=== PATIENT | male | born 1955 | race Caucasian/White ===

== ENCOUNTER 2024-10-15 11:27 | Inpatient (IN) | payer MEDICAID, MEDICARE ==
[~2024-10-15] VITALS: Ht 182.9 cm; Wt 104.4 kg
[2024-10-15 12:34] LABS: HEMATOCRIT. 50.1 % (42.0-52.0); HEMOGLOBIN. 16.3 g/dL (14.0-18.0); MEAN CORPUSCULAR HEMOGLOBIN 28.8 pg (28.0-32.0); MEAN CORPUSCULAR HGB CONC 32.6 g/dL (31.0-37.0); MEAN CORPUSCULAR VOLUME 88.2 fL (80.0-94.0); PLATELET 163 x1000/uL (130-400); RED BLOOD CELL COUNT 5.68 mill/uL (4.7-6.1); RED CELL DISTRIBUTION WIDTH 17.8 % (11.6-14.6); WHITE BLOOD COUNT 20.6 x1000/uL (4.5-11.0)
[2024-10-15 12:38] LABS: DIFFERENTIAL COMMENT 1
[2024-10-15 12:42] LABS: INR 1.1; PROTHROMBIN TIME 11.4 sec (9.6-11.0)
[2024-10-15 12:48] LABS: POTASSIUM 4.1 mEq/L (3.5-5.1)
[2024-10-15 12:49] LABS: CALCIUM 9.5 mg/dL (8.7-10.4)
[2024-10-15 12:54] LABS: CREATININE 1.5 mg/dL (0.6-1.3)
[2024-10-15 13:24] LABS: ANISOCYTOSIS 1+; PLATELET ESTIMATE NORMAL
[2024-10-15] MEDS: SODIUM CHLORIDE 0.9% 1,000 ML IV ONE (13:42)
[2024-10-15] MEDS: CEFTRIAXONE 1GM/50ML 50 ML IV ONE (13:42)
[2024-10-15 13:58] LABS: ALANINE AMINOTRANSFERASE 42 IU/L (10-49); ALBUMIN 4.5 g/dL (3.2-4.8); ASPARTATE AMINOTRANSFERASE 21 IU/L (<34); BILIRUBIN DIRECT 0.4 mg/dL (<=3.0); BILIRUBIN TOTAL 1.1 mg/dL (0.1-1.0); PROTEIN TOTAL 6.7 g/dL (6.0-8.3)
[2024-10-15 14:09] LABS: TROPONIN I HIGH SENSITIVITY 77 ng/L (3.0-53)
[2024-10-15 16:01] LABS: INFLUENZA TYPE A Presumptive Negative (Pres. Neg.)
[2024-10-15 16:02] LABS: INFLUENZA TYPE B Presumptive Negative (Pres. Neg.); RESPIRATORY SYNCYTIAL VIRUS Not Detected (Not Detectd)
[2024-10-15] MEDS: AZITHROMYCIN 500MG/250ML 250 ML IV SCH (16:03)
[2024-10-15] MEDS ORDERED: CLONIDINE 0.1MG TABLET PO PRN (17:30)
[2024-10-15] MEDS ORDERED: ACETAMINOPHEN 325MG TABLET PO PRN (17:30)
[2024-10-15] MEDS ORDERED: DEXTROSE 50% WATER 50ML SYRINGE IV PRN (17:30)
[2024-10-15] MEDS ORDERED: MAGNESIUM/ALUMINUM HYDROXIDE/SIMETHICONE 30ML UDC PO PRN (17:30)
[2024-10-15] MEDS ORDERED: IPRATROPIUM/ALBUTEROL 0.5-3(2.5)MG/3ML NEB HHN PRN (17:30)
[2024-10-15] MEDS ORDERED: SODIUM CHLORIDE 0.9% 1,000 ML IV ONE (18:30)
[2024-10-15 19:34] LABS: TROPONIN I HIGH SENSITIVITY 63 ng/L (3.0-53)
[2024-10-15 20:00] VITALS: BP 139/31; PULSE 79; RESP 18; RESP 19; TEMP 36.9; TEMP 37; O2SAT 92
[2024-10-15] MEDS: INSULIN LISPRO 100 UNITS/ML SUBCUT SCH (21:00)
[2024-10-15] MEDS: BLOOD SUGAR DIAGNOSTIC STRIP TEST SCH (21:03)
[2024-10-15] MEDS: ATORVASTATIN CALCIUM 40MG TABLET PO SCH (21:56)
[2024-10-15] MEDS: SODIUM CHLORIDE 0.9% 500 ML IV ONE (21:56)
[2024-10-15] MEDS: FAMOTIDINE 20MG TABLET PO SCH (21:57)
[2024-10-15] MEDS: VANCOMYCIN 1.25GM/250ML IV SCH (21:58)
[2024-10-16] VITALS: BP 120/59; PULSE 74; RESP 19; TEMP 36.9; O2SAT 91
[2024-10-16] MEDS ORDERED: TAMS-54 (01:31)
[2024-10-16] MEDS ORDERED: ESCI5TAB16 PO (01:31)
[2024-10-16] MEDS ORDERED: FURO20TA4 PO (01:31)
[2024-10-16] MEDS ORDERED: LISI-186 PO (01:31)
[2024-10-16] MEDS ORDERED: EMPA25TA PO (01:31)
[2024-10-16] MEDS ORDERED: CLOP75TA33 PO (01:31)
[2024-10-16 02:21] LABS: TROPONIN I HIGH SENSITIVITY 52 ng/L (3.0-53)
[2024-10-16 04:00] VITALS: BP 124/63; PULSE 60; RESP 20; TEMP 36.3; O2SAT 91
[2024-10-16] MEDS: SODIUM CHLORIDE 0.9% 1,000 ML IV ONE (05:07)
[2024-10-16] MEDS: PIPERACILLIN/TAZO 3.375G/50ML 100 ML IV SCH (05:07)
[2024-10-16 06:31] LABS: CLARITY URINE CLEAR (CLEAR); COLOR URINE YELLOW (YELLOW); GLUCOSE URINE 3+ (NEGATIVE); KETONES URINE TRACE (NEGATIVE); LEUKOCYTE ESTERASE URINE 1+ (NEGATIVE); NITRITE URINE NEGATIVE (NEGATIVE); OCCULT BLOOD URINE TRACE (NEGATIVE); PH URINE 5.5 (4.5-8.0); PROTEIN URINE 1+ (NEGATIVE); SPECIFIC GRAVITY URINE 1.029 (1.005-1.030); UROBILINOGEN URINE 0.2 E.U./dL (0.2-1.0)
[2024-10-16 06:40] LABS: HEMATOCRIT. 46.9 % (42.0-52.0); HEMOGLOBIN. 15.5 g/dL (14.0-18.0); MEAN CORPUSCULAR VOLUME 87.8 fL (80.0-94.0); MEAN PLATELET VOLUME 9.2 fl (7.4-10.4); PLATELET 135 x1000/uL (130-400); RED BLOOD CELL COUNT 5.34 mill/uL (4.7-6.1); RED CELL DISTRIBUTION WIDTH 17.7 % (11.6-14.6); WHITE BLOOD COUNT 12.8 x1000/uL (4.5-11.0)
[2024-10-16 06:42] LABS: DIFFERENTIAL COMMENT 1
[2024-10-16 07:03] LABS: SQUAMOUS EPITHELIAL CELL URINE NONE SEEN /lpf (RARE/1+); WBC URINE TNTC /hpf (0-2)
[2024-10-16 07:04] LABS: BACTERIA URINE TRACE; RBC URINE NONE SEEN /hpf (0-2)
[2024-10-16 07:12] LABS: CHLORIDE 107 mEq/L (98-107); POTASSIUM 3.9 mEq/L (3.5-5.1); SODIUM 139 mEq/L (136-145)
[2024-10-16 07:13] LABS: CALCIUM 8.8 mg/dL (8.7-10.4); CARBON DIOXIDE 24 mEq/L (21-32)
[2024-10-16 07:18] LABS: CREATININE 1.2 mg/dL (0.6-1.3); GLUCOSE 117 mg/dL (70-105); TRIGLYCERIDE 72 mg/dL (0-150); UREA NITROGEN BLOOD 19 mg/dL (9-23)
[2024-10-16 07:19] LABS: LDL CHOLESTEROL 38 mg/dL (5-100)
[2024-10-16 07:20] LABS: CHOLESTEROL 86 mg/dL (<200); HDL CHOLESTEROL 33 mg/dL (>55)
[2024-10-16 07:23] LABS: THYROID STIMULATING HORMONE 0.38 uIU/mL (0.55-4.78)
[2024-10-16 07:36] LABS: *AMPHETAMINES SCREEN URINE NEGATIVE (NEGATIVE); *BARBITURATES SCREEN URINE NEGATIVE (NEGATIVE); *BENZODIAZEPINES SCREEN URINE NEGATIVE (NEGATIVE); *COCAINE SCREEN URINE NEGATIVE (NEGATIVE); CANNABINOID URINE SCREEN NEGATIVE (NEGATIVE); METHADONE URINE SCREEN NEGATIVE (NEGATIVE); OPIATES URINE SCREEN NEGATIVE (NEGATIVE); PHENCYCLIDINE URINE SCREEN NEGATIVE (NEGATIVE)
[2024-10-16 07:37] LABS: ECSTASY MDMA SCREEN URINE NEGATIVE (NEGATIVE)
[2024-10-16 08:00] VITALS: BP 148/89; PULSE 91; RESP 18; TEMP 36.4; O2SAT 100
[2024-10-16 09:47] LABS: ANISOCYTOSIS 1+; PLATELET ESTIMATE NORMAL
[2024-10-16] MEDS: ENOXAPARIN 40MG/0.4ML SYR SUBCUT SCH (10:03)
[2024-10-16] MEDS: CLOPIDOGREL 75MG TABLET PO SCH (10:03)
[2024-10-16] MEDS: VANCOMYCIN 1.5GM PMX (XELLIA) 300 ML IV SCH (11:54)
[2024-10-16 12:00] VITALS: BP 136/79; PULSE 89; RESP 20; TEMP 36.7; O2SAT 98
[2024-10-16 16:00] VITALS: BP 138/79; PULSE 76; RESP 20; TEMP 36.7; O2SAT 96
[2024-10-16] MEDS: ACETAMINOPHEN 325MG TABLET PO PRN (19:19)
[2024-10-16 20:00] VITALS: BP 151/73; PULSE 56; RESP 20; TEMP 36.8; O2SAT 95
[2024-10-17] VITALS: BP 154/66; PULSE 57; RESP 20; TEMP 36.5; O2SAT 95
[2024-10-17 04:00] VITALS: BP 148/68; PULSE 60; RESP 20; TEMP 36.8; O2SAT 96
[2024-10-17 06:32] LABS: HEMATOCRIT 50.7 % (42.0-52.0); HEMOGLOBIN 16.9 g/dL (14.0-18.0); MEAN CORPUSCULAR HGB CONC 33.4 g/dL (31.0-37.0); MEAN CORPUSCULAR VOLUME 86.9 fL (80.0-94.0); PLATELET 126 x1000/uL (130-400); RED BLOOD CELL COUNT 5.83 mill/uL (4.7-6.1); RED CELL DISTRIBUTION WIDTH 17.4 % (11.6-14.6)
[2024-10-17 06:43] LABS: CHLORIDE 105 mEq/L (98-107); POTASSIUM 4.3 mEq/L (3.5-5.1); SODIUM 139 mEq/L (136-145)
[2024-10-17 06:44] LABS: CALCIUM 9.2 mg/dL (8.7-10.4); CARBON DIOXIDE 24 mEq/L (21-32)
[2024-10-17 06:49] LABS: CREATININE 1.2 mg/dL (0.6-1.3); GLUCOSE 126 mg/dL (70-105); UREA NITROGEN BLOOD 20 mg/dL (9-23)
[2024-10-17 06:54] LABS: THYROID STIMULATING HORMONE 2.08 uIU/mL (0.55-4.78)
[2024-10-17 08:00] VITALS: BP 158/70; PULSE 54; RESP 18; TEMP 37; O2SAT 98
[2024-10-17 12:00] VITALS: BP 119/69; PULSE 58; RESP 18; TEMP 36.6; O2SAT 100
[2024-10-17] MEDS ORDERED: CEFI400C4 PO (13:05)
[2024-10-17 16:00] VITALS: BP 148/89; PULSE 59; RESP 16; TEMP 37.1; O2SAT 97
[2024-10-17] MEDS: LISINOPRIL 5MG TABLET PO SCH (19:59)
[2024-10-17 20:00] VITALS: BP 153/72; PULSE 53; RESP 18; TEMP 37.2; O2SAT 98
[2024-10-18] VITALS (7 sets, daily range): BP systolic 141–160; BP diastolic 67–92; PULSE 52–65; RESP 18–20; TEMP 36.5–37.2; O2SAT 93–97
[2024-10-18] MEDS: PIPERACILLIN/TAZO 3.375G/50ML 50 ML IV SCH (06:05)
[2024-10-18 06:17] LABS: BASOPHILS % 0.3 % (0.0-2.0); DIFFERENTIAL COMMENT 0; EOSINOPHILS % 2.8 % (0.0-5.0); HEMATOCRIT. 48.9 % (42.0-52.0); HEMOGLOBIN. 16.2 g/dL (14.0-18.0); MEAN CORPUSCULAR HEMOGLOBIN 28.9 pg (28.0-32.0); MEAN CORPUSCULAR HGB CONC 33.2 g/dL (31.0-37.0); MEAN CORPUSCULAR VOLUME 87.1 fL (80.0-94.0); MEAN PLATELET VOLUME 8.9 fl (7.4-10.4); MONOCYTES % 13.6 % (2.0-8.0); NEUTROPHILS % 70.3 % (40.0-76.0); PLATELET 124 x1000/uL (130-400); RED BLOOD CELL COUNT 5.61 mill/uL (4.7-6.1); RED CELL DISTRIBUTION WIDTH 17.6 % (11.6-14.6); WHITE BLOOD COUNT 8.2 x1000/uL (4.5-11.0)
[2024-10-18 06:34] LABS: POTASSIUM 4.2 mEq/L (3.5-5.1)
[2024-10-18 06:36] LABS: CALCIUM 9.3 mg/dL (8.7-10.4)
[2024-10-18 06:40] LABS: CREATININE 1.3 mg/dL (0.6-1.3)
[2024-10-18] MEDS ORDERED: ATOR-2 PO (10:58)
== END 2024-10-18 18:00 | disposition home or self-care (01) | DRG 871 ==
LOC: ER 11:31 → EDBEDREQ 16:24 → EDBEDREQTM 16:24 → ENRESERV 16:32 → 7WST 17:38
PROVIDERS: ADMIT Internal Medicine; ATTEND Internal Medicine
DX: A41.9 Sepsis, unspecified organism (principal); I21.A1 Myocardial infarction type 2; J18.9 Pneumonia, unspecified organism; T24.301A Burn of third degree of unspecified site of right lower limb, except ankle and foot, initial encounter; L03.115 Cellulitis of right lower limb; N17.9 Acute kidney failure, unspecified; N39.0 Urinary tract infection, site not specified; I50.20 Unspecified systolic (congestive) heart failure; Z20.822 Contact with and (suspected) exposure to COVID-19; E11.51 Type 2 diabetes mellitus with diabetic peripheral angiopathy without gangrene; S30.0XXA Contusion of lower back and pelvis, initial encounter; F17.210 Nicotine dependence, cigarettes, uncomplicated; X58.XXXA Exposure to other specified factors, initial encounter; I11.0 Hypertensive heart disease with heart failure; E11.65 Type 2 diabetes mellitus with hyperglycemia; N40.0 Benign prostatic hyperplasia without lower urinary tract symptoms; Z79.02 Long term (current) use of antithrombotics/antiplatelets; Z88.8 Allergy status to other drugs, medicaments and biological substances; Y93.89 Activity, other specified; Y92.89 Other specified places as the place of occurrence of the external cause; Y99.8 Other external cause status; I25.2 Old myocardial infarction; Z86.73 Personal history of transient ischemic attack (TIA), and cerebral infarction without residual deficits
CPT/HCPCS: 36415; 71045; 73700; 80048; 80061; 80076; 80202; 80305; 81003; 82962; 83036; 83605; 83880; 84145; 84443; 84484; 85025; 85027; 87070; 87076; 87077; 87186; 87420; 87426; 87804; 93005; 93306; 93923; 93970; 97116; 97162; 97166; 97530; 99291; J0456; J0696; J1650; J1815; J2543; J3370; J7030